=== PATIENT | female | born 1975 | race Two or more races ===

== ENCOUNTER 2018-01-26 15:29 | Inpatient (IN) | payer OTHER ==
--- NOTE | 2018-01-26 14:44 | HP ---
Screened but not Admitted - Documentation of Visit Screened but not Admitted: Yes Left Prior to Completion of Assessment: Yes Additional Information/Explanation: patient changed her mind,stated she is not ready to come in for detox,. did not want to give urine for drug screen ,. [facility]
[2018-01-26 19:33] VITALS: BMI 20.4
--- NOTE | 2018-01-26 20:20 | HP ---
COWS - Scale Resting Pulse: 2= NM 101-120 Sweatin=Flushed/Facial Moisture Restless Observation: 0= Sits Still Pupil Size: 1= Pupils >than Normal Bone or Joint Aches: 4=Acute Joint/Muscle Pain Runny Nose/ Eye Tearin= Runny Nose/Eyes GI Upset > 30mins: 2= Nausea/Diarrhea (diarrhea x 6) Tremor Observation: 2= Slight Tremor Visible Yawning Observation: 0= None Anxiety or Irritability: 0= None Goose Flesh Skin: 0=Smooth Skin COWS Score: 15 CIWA Score - CIWA Score Nausea/Vomitin Muscle Tremors: 4-Moderate,w/Arms Extend Anxiety: 4-Mod. Anxious/Guarded Agitation: 4-Moderately Restless Paroxysmal Sweats: 1-Minimal Palms Moist Orientation: 0-Oriented Tacttile Disturbances: 0-None Auditory Disturbances: 0-None Visual Disturbances: 0-None Headache: 2-Mild CIWA-Ar Total Score: 18 Admission ROS BHS - HPI Chief Complaint: Withdrawal symptoms Allergies/Adverse Reactions: Allergies Allergy/AdvReac Type Severity Reaction Status Date / Time No Known Allergies Allergy Verified 01/26/18 19:36 History of Present Illness: 42 years old female with a long history of alcohol and heroin dependence is seeking admission to detox. Patient has been in previous detox at [facility] and reports 7 years of sobriety. Patient has medical history of depression, asthma and anxiety. She reports suicide attempt in 2017 and denies suicidal ideation at this time. Patient reports that she was kicked out of [facility] 5 days ago that she is allergic to Librium. Patient is to be started on Valium pending confirmation an verification of her story regarding Methadone by the nurse. Exam Limitations: No Limitations - Ebola screening Have you traveled outside of the country in the last 21 days: No Have you had contact with anyone from an Ebola affected area: No Have you been sick,other than usual withdrawal symptoms: No Do you have a fever: No - Review of Systems Constitutional: Chills, Loss of Appetite, Malaise, Night Sweats, Changes in sleep EENT: reports: No Symptoms Reported Respiratory: reports: No Symptoms reported Cardiac: reports: No Symptoms Reported GI: reports: Diarrhea (x 3), Poor Appetite, Poor Fluid Intake, Abdominal cramping : reports: No Symptoms Reported Musculoskeletal: reports: Back Pain, Joint Pain, Muscle Pain, Muscle Weakness Integumentary: reports: Dryness Neuro: reports: Headache, Tremors Endocrine: reports: No Symptoms Reported Hematology: reports: No Symptoms Reported Psychiatric: reports: Agitated, Anxious, Depressed Other Systems: Reviewed and Negative Patient History - Patient Medical History Hx Anemia: No Hx Asthma: Yes (ON ALBUTEROL PUMP) Hx Chronic Obstructive Pulmonary Disease (COPD): No Hx Cancer: No Hx Cardiac Disorders: No Hx Congestive Heart Failure: No Hx Hypertension: No Hx Hypercholesterolemia: No Hx Pacemaker: No HX Cerebrovascular Accident: No Hx Seizures: No Hx Diabetes: No Hx Gastrointestinal Disorders: No Hx Liver Disease: No Hx Genitourinary Disorders: No Hx Sexually Transmitted Disorders: No Hx Renal Disease (ESRD): No Hx Thyroid Disease: No Hx Human Immunodeficiency Virus (HIV): No (Negative 2016) Hx Hepatitis C: No Hx Depression: Yes (Seroquel) Hx Suicide Attempt: No (2017. Denies suicidal ideation at this time) Hx Bipolar Disorder: No Hx Schizophrenia: No Other Medical History: Anxiety - Not on medication - Patient Surgical History Past Surgical History: No Hx Neurologic Surgery: No Hx Cataract Extraction: No Hx Cardiac Surgery: No Hx Lung Surgery: No Hx Breast Surgery: No Hx Breast Biopsy: No Hx Abdominal Surgery: No Hx Appendectomy: No Hx Cholecystectomy: No Hx Genitourinary Surgery: No Hx Section: No Hx Orthopedic Surgery: No Anesthesia Reaction: No - PPD History Previous Implant?: Yes Documented Results: Negative w/o proof Implanted On Prior R Admission?: Yes PPD to be Administered?: Yes - Reproductive History Patient is a Female of Child Bearing Age (11 -55 yrs old): Yes Last Menstrual Period: 01/26/18 Patient : No - Smoking Cessation Smoking history: Current every day smoker Have you smoked in the past 12 months: Yes Aproximately how many cigarettes per day: 10 Hx Chewing Tobacco Use: Yes Initiated information on smoking cessation: Yes 'Breaking Loose' booklet given: 01/26/18 - Substance & Tx. History Hx Alcohol Use: Yes Hx Substance Use: Yes Substance Use Type: Alcohol, Heroin, Marijuana Hx Substance Use Treatment: Yes - Substances Abused Alcohol Frequency: 3-6 times per week Amount used: 1 PINT OF ACE [place] Age of first use: 10 Date of Last Use: 01/26/18 Heroin Route: Inhalation Frequency: Daily Amount used: 3 BAGS DAILY Age of first use: 26 Date of Last Use: 01/26/18 CRYSTAL METH Route: Inhalation Frequency: 1-2 times per week Amount used: 1/2 BAG Age of first use: 40 Date of Last Use: 01/25/18 Family Disease History - Family Disease History Family History: Denies Admission Physical Exam [facility] - Vital Signs Vital Signs: Vital Signs - 24 hr 01/26/18 19:30 Temperature 98.6 F Pulse Rate 106 H Respiratory 18 Rate Blood Pressure 114/76 - Physical General Appearance: Yes: Moderate Distress, Tremorous, Irritable, Sweating, Anxious HEENTM: Yes: EOMI, Normocephalic, Normal Voice Respiratory: Yes: Lungs Clear, Normal Breath Sounds, No Respiratory Distress Neck: Yes: Supple Breast: Yes: Breast Exam Deferred Cardiology: Yes: Tachycardia Abdominal: Yes: Normal Bowel Sounds, Soft Genitourinary: Yes: Within Normal Limits Back: Yes: Normal Inspection Musculoskeletal: Yes: Back pain, Muscle Pain, Muscle weakness Extremities: Yes: Tremors Neurological: Yes: Fully Oriented, Alert, Motor Strength 5/5, Normal Mood/Affect Integumentary: Yes: Normal Color Lymphatic: Yes: Within Normal Limits - Diagnostic (1) Alcohol dependence with uncomplicated withdrawal Current Visit: Yes Status: Chronic (2) Depression Current Visit: Yes Status: Chronic Qualifiers: Depression Type: unspecified Qualified Code(s): F32.9 - Major depressive disorder, single episode, unspecified (3) Anxiety Current Visit: Yes Status: Chronic (4) Asthma Current Visit: Yes Status: Chronic Cleared for Admission [facility] - Detox or Rehab [facility] Level of Care: Medically Managed Detox Regimen/Protocol: Valium [facility] Breath Alcohol Content Breath Alcohol Content: 0.013 Urine Pregancy Test - Result Urine Test Results: Negative- NO Line Present Urine Drug Screen - Results Drug Screen Negative: No Urine Drug Screen Results: OPI-Opiates, AMP-Amphetamines, MET-Methamphetamine, BZO-Benzodiazepines, MTD-Methadone
[2018-01-26] MEDS ORDERED: IBUPROFEN 400 MG TABLET (FP) PO PRN (21:37)
[2018-01-26] MEDS ORDERED: MAGNESIUM CITRATE 300 ML BOTTLE PO PRN (21:37)
[2018-01-26] MEDS ORDERED: LOPERAMIDE HCL 2 MG CAPSULE PO PRN (21:37)
[2018-01-26] MEDS ORDERED: diazePAM 5 MG TABLET PO ONE (21:37)
[2018-01-26] MEDS ORDERED: MENTHOL/PHENOL 1 EACH UD MM PRN (21:37)
[2018-01-26] MEDS ORDERED: ACETAMINOPHEN 325 MG TABLET (FP) PO PRN (21:37)
[2018-01-26] MEDS ORDERED: MAG HYDROX/AL HYDROX/SIMETH 30 ML UNIT-DOSE CUP PO PRN (21:37)
[2018-01-26] MEDS ORDERED: MAGNESIUM HYDROX 2400MG/30ML ORAL SUSPENSION 30 ML CUP PO PRN (21:37)
[2018-01-26] MEDS ORDERED: P-EPHED 60MG/TRIPROLIDI 2.5MG TABLET PO PRN (21:37)
[2018-01-26] MEDS ORDERED: guaiFENesin/D-METHORPHAN HB 10 ML UNIT-DOSE CUPS PO PRN (21:37)
[2018-01-26] MEDS ORDERED: diazePAM 5 MG TABLET PO PRN (21:37)
[2018-01-26] MEDS ORDERED: ALBUTEROL SO4 8 GM HFA INHALER IH PRN (21:39)
[2018-01-26] MEDS ORDERED: MELATONIN 5 MG TABLETS PO PRN (22:00)
[2018-01-26] MEDS ORDERED: THIAMINE HCL 100 MG TABLET (FP) PO SCH (22:00)
[2018-01-26] MEDS: diazePAM 5 MG TABLET PO SCH (22:52)
[2018-01-27] MEDS: diazePAM 5 MG TABLET PO SCH ×2 (06:46→13:21)
[2018-01-27] MEDS: NICOTINE POLACRILEX 2 MG GUM BC PRN ×2 (06:52→10:52)
--- NOTE | 2018-01-27 07:35 | CONSULT ---
[facility] Psychiatric Consult - Data Date of interview: 01/27/18 Admission source: [facility] Identifying data: This is a 42 years old female, single, mother of four, unemployed, living with , with no pablic support, with psychiatric hospitalization history with a long history of alcohol and heroin dependence is seeking admission to detox. Patient with history abusing Crystal Meth and Nicotine as well. Substance Abuse History: - Smoking Cessation. Smoking history: Current every day smoker. Have you smoked in the past 12 months: Yes. Aproximately how many cigarettes per day: 10. Hx Chewing Tobacco Use: Yes. Initiated information on smoking cessation: Yes. 'Breaking Loose' booklet given: 01/26/18. - Substance & Tx. History. Hx Alcohol Use: Yes. Hx Substance Use: Yes. Substance Use Type : Alcohol, Heroin, Marijuana. Hx Substance Use Treatment: Yes. - Substances Abused. Alcohol. Frequency: 3-6 times per week. Amount used: 1 PINT OF [place]. Age of first use: 10. Date of Last Use: 01/26/18. Heroin. Route: Inhalation. Frequency: Daily. Amount used: 3 BAGS DAILY. Age of first use: 26. Date of Last Use: 01/26/18. CRYSTAL METH. Route: Inhalation. Frequency: 1-2 times per week. Amount used: 1/2 BAG. Age of first use: 40. Date of Last Use: 01/25/18 Medical History: Astma, MMTP- unclear history, Psychiatric History: Patient reports unclear past psychiatric history, unclear psychiatric hospitalization history, as per com[pluter there is a history of Suiicdal attempt, patient denies suicidal history at this time. Reports taking prior to admission: Seroquel 100mg po qhs Physical/Sexual Abuse/Trauma History: Unclear Additional Comment: Observation. Seroquel 100mg po qhs Mental Status Exam - Mental Status Exam Alert and Oriented to: Person Cognitive Function: Fair Patient Appearance: Unkempt Mood: Sad Affect: Flat Patient Behavior: Sedated Speech Pattern: Delayed Voice Loudness: Mildly Soft/Quiet Thought Process: Circumstantial Thought Disorder: Being Controlled Hallucinations: Denies Suicidal Ideation: Denies Homicidal Ideation: Denies Insight/Judgement: Fair Sleep: Difficulty falling asleep Appetite: Weight loss Muscle strength/Tone: Mild Hypotonicity Gait/Station: Shuffling Additional Comments: Observation. Seroquel 100mg po qhs Psychiatric Findings - Problem List ([place] 1, 2,3) (1) Opioid dependence Current Visit: Yes Status: Acute (2) Amphetamine abuse Current Visit: Yes Status: Acute (3) Nicotine dependence Current Visit: Yes Status: Acute (4) Drug-induced mood disorder Current Visit: Yes Status: Acute (5) Alcohol dependence with uncomplicated withdrawal Current Visit: Yes Status: Chronic (6) Asthma Current Visit: Yes Status: Chronic - Initial Treatment Plan Initial Treatment Plan: Observation. Seroquel 100mg po qhs
[2018-01-27] MEDS ORDERED: PRENATAL VITAMINS W/ FOLIC ACID TABLET (FP) PO SCH (10:00)
[2018-01-27] MEDS ORDERED: NICOTINE 14 MG/24 HOURS TOPICAL PATCH TD SCH (10:00)
[2018-01-27 10:15] LABS: HEMATOCRIT 40.5 % (32.4-45.2); MCH 31.5 pg (25.7-33.7); MCHC 34.5 g/dl (32.0-36.0); MEAN CELL VOLUME 91.3 fl (80-96); MEAN PLT VOLUME 7.9 fl (7.5-11.1); PLATELET COUNT 374 K/MM3 (134-434); RBC 4.44 M/mm3 (3.60-5.2); RDW 13.6 % (11.6-15.6); WHITE BLOOD COUNT 9.8 K/mm3 (4.0-10.0)
[2018-01-27 10:31] LABS: CALCIUM 8.5 mg/dL (8.5-10.1); CHLORIDE 107 mmol/L (98-107); POTASSIUM 4.4 mmol/L (3.5-5.1); SODIUM 141 mmol/L (136-145)
[2018-01-27 10:38] LABS: ALBUMIN 3.4 g/dl (3.4-5.0); ALK PHOS 103 U/L (45-117); ANION GAP 7 (8-16); BILIRUBIN,TOTAL 0.3 mg/dL (0.2-1.0); BLOOD UREA NITROGEN 11 mg/dL (7-18); CO2 27 mmol/L (21-32); CREATININE 0.7 mg/dL (0.55-1.02); GLUCOSE,RANDOM 97 mg/dL (74-106); SGOT/AST 29 U/L (15-37); SGPT/ALT 35 U/L (12-78); TOT PROT 6.7 g/dl (6.4-8.2)
--- NOTE | 2018-01-27 11:11 | PN ---
S CIWA - CIWA Score Nausea/Vomitin Muscle Tremors: 3 Anxiety: 3 Agitation: 3 Paroxysmal Sweats: 1-Minimal Palms Moist Orientation: 0-Oriented Tacttile Disturbances: 1-Very Mild Itch/Numbness Auditory Disturbances: 1-Very Mild Visual Disturbances: 0-None Headache: 2-Mild CIWA-Ar Total Score: 17 BHS COWS - Scale Resting Pulse: 0= [place] 80 or Below Sweatin= Chills/Flushing Restless Observation: 3= Extraneous Movement Pupil Size: 1= Pupils >than Normal Bone or Joint Aches: 2= Severe Diffuse Aches Runny Nose/ Eye Tearin= Runny Nose/Eyes GI Upset > 30mins: 2= Nausea/Diarrhea Tremor Observation of Outstretched Hands: 2= Slight Tremor Visible Yawning Observation: 1= 1-2x During Session Anxiety or Irritability: 2=Irritable/Anxious Goose Flesh Skin: 0=Smooth Skin COWS Score: 16 BHS Progress Note (SOAP) Subjective: alert,irritable,anxious,interrupted sleep,pain in the body and back,tremor, verify by nurse that patient was not on methadone maintenance since 01/15/18, she did not want to be on ,ethadone any more,will detox with methadone and valium regimen Objective: 01/27/18 11:09 Vital Signs Temperature 97.9 F 01/27/18 06:00 Pulse Rate 75 01/27/18 06:00 Respiratory Rate 18 01/27/18 06:00 Blood Pressure 145/90 01/27/18 06:00 O2 Sat by Pulse Oximetry (%) Laboratory Last Values WBC 9.8 K/mm3 (4.0-10.0) 01/27/18 06:30 RBC 4.44 M/mm3 (3.60-5.2) 01/27/18 06:30 Hgb 14.0 GM/dL (10.7-15.3) 01/27/18 06:30 Hct 40.5 % (32.4-45.2) 01/27/18 06:30 MCV 91.3 fl (80-96) 01/27/18 06:30 MCH 31.5 pg (25.7-33.7) 01/27/18 06:30 MCHC 34.5 g/dl (32.0-36.0) 01/27/18 06:30 RDW 13.6 % (11.6-15.6) 01/27/18 06:30 Plt Count 374 K/MM3 (134-434) 01/27/18 06:30 MPV 7.9 fl (7.5-11.1) 01/27/18 06:30 Sodium 141 mmol/L (136-145) 01/27/18 06:30 Potassium 4.4 mmol/L (3.5-5.1) 01/27/18 06:30 Chloride 107 mmol/L (98-107) 01/27/18 06:30 Carbon Dioxide 27 mmol/L (21-32) 01/27/18 06:30 Anion Gap 7 (8-16) L 01/27/18 06:30 BUN 11 mg/dL (7-18) 01/27/18 06:30 Creatinine 0.7 mg/dL (0.55-1.02) 01/27/18 06:30 Creat Clearance w eGFR > 60 (>60) 01/27/18 06:30 Random Glucose 97 mg/dL (74-106) 01/27/18 06:30 Calcium 8.5 mg/dL (8.5-10.1) 01/27/18 06:30 Total Bilirubin 0.3 mg/dL (0.2-1.0) 01/27/18 06:30 AST 29 U/L (15-37) 01/27/18 06:30 ALT 35 U/L (12-78) 01/27/18 06:30 Alkaline Phosphatase 103 U/L (45-117) 01/27/18 06:30 Total Protein 6.7 g/dl (6.4-8.2) 01/27/18 06:30 Albumin 3.4 g/dl (3.4-5.0) 01/27/18 06:30 RPR Titer Nonreactive (NONREACTIVE) 01/27/18 06:30 HIV 1&2 Antibody Screen Negative 01/27/18 06:30 HIV P24 Antigen Negative 01/27/18 06:30 Assessment: 01/27/18 11:10 withdrawal symptom Plan: continue detox
[2018-01-27] MEDS ORDERED: METHADONE HCL 10 MG TABLET (FOR DETOX USE ONLY) PO ONE ×2 (11:40→23:00)
[2018-01-27] MEDS ORDERED: CYCLOBENZAPRINE HCL 10 MG TABLET (FP) PO PRN (12:27)
[2018-01-27] MEDS ORDERED: cloNIDine HCL 0.1 MG TABLET PO SCH (12:30)
--- NOTE | 2018-01-27 14:00 | PN ---
John Progress Note Note: patient did not want to complete treatment,declined to give reason,all attempts to convince patient to stay with no avail.risk of withdrawal and relapse explained,signed release ama,advise to go to emergency room if emergency medical problem
--- NOTE | 2018-01-27 14:02 | DS ---
[facility] Detox Discharge Summary Admission Date: 01/26/18 Discharge Date: 01/27/18 - History Present History: Alcohol Dependence, Opioid Dependence Additional Comments: patient signed release ama Pertinent Past History: asthma anxiety and depression - Physical Exam Results Vital Signs: Vital Signs Temperature 97.7 F 01/27/18 11:10 Pulse Rate 68 01/27/18 11:10 Respiratory Rate 18 01/27/18 11:10 Blood Pressure 145/89 01/27/18 11:10 O2 Sat by Pulse Oximetry (%) Pertinent Admission Physical Exam Findings: withdrawal signs and symptom Laboratory Last Values WBC 9.8 K/mm3 (4.0-10.0) 01/27/18 06:30 RBC 4.44 M/mm3 (3.60-5.2) 01/27/18 06:30 Hgb 14.0 GM/dL (10.7-15.3) 01/27/18 06:30 Hct 40.5 % (32.4-45.2) 01/27/18 06:30 MCV 91.3 fl (80-96) 01/27/18 06:30 MCH 31.5 pg (25.7-33.7) 01/27/18 06:30 MCHC 34.5 g/dl (32.0-36.0) 01/27/18 06:30 RDW 13.6 % (11.6-15.6) 01/27/18 06:30 Plt Count 374 K/MM3 (134-434) 01/27/18 06:30 MPV 7.9 fl (7.5-11.1) 01/27/18 06:30 Sodium 141 mmol/L (136-145) 01/27/18 06:30 Potassium 4.4 mmol/L (3.5-5.1) 01/27/18 06:30 Chloride 107 mmol/L (98-107) 01/27/18 06:30 Carbon Dioxide 27 mmol/L (21-32) 01/27/18 06:30 Anion Gap 7 (8-16) L 01/27/18 06:30 BUN 11 mg/dL (7-18) 01/27/18 06:30 Creatinine 0.7 mg/dL (0.55-1.02) 01/27/18 06:30 Creat Clearance w eGFR > 60 (>60) 01/27/18 06:30 Random Glucose 97 mg/dL (74-106) 01/27/18 06:30 Calcium 8.5 mg/dL (8.5-10.1) 01/27/18 06:30 Total Bilirubin 0.3 mg/dL (0.2-1.0) 01/27/18 06:30 AST 29 U/L (15-37) 01/27/18 06:30 ALT 35 U/L (12-78) 01/27/18 06:30 Alkaline Phosphatase 103 U/L (45-117) 01/27/18 06:30 Total Protein 6.7 g/dl (6.4-8.2) 01/27/18 06:30 Albumin 3.4 g/dl (3.4-5.0) 01/27/18 06:30 RPR Titer Nonreactive (NONREACTIVE) 01/27/18 06:30 HIV 1&2 Antibody Screen Negative 01/27/18 06:30 HIV P24 Antigen Negative 01/27/18 06:30 Vital Signs Temperature 97.7 F 01/27/18 11:10 Pulse Rate 68 01/27/18 11:10 Respiratory Rate 18 01/27/18 11:10 Blood Pressure 145/89 01/27/18 11:10 O2 Sat by Pulse Oximetry (%) - Medication Discharge Medications: Ambulatory Orders Albuterol Sulfate Inhaler - [Ventolin Hfa Inhaler -] 2 inh PO Q4H PRN 01/26/18 Quetiapine Fumarate [Seroquel -] 100 mg PO HS #30 tablet 01/27/18 - Diagnosis (1) Opioid dependence with withdrawal Current Visit: Yes Status: Acute (2) Alcohol dependence with uncomplicated withdrawal Current Visit: Yes Status: Chronic (3) Anxiety Current Visit: Yes Status: Chronic (4) Asthma Current Visit: Yes Status: Chronic (5) Depression Current Visit: Yes Status: Chronic Qualifiers: Depression Type: unspecified Qualified Code(s): F32.9 - Major depressive disorder, single episode, unspecified - AMA Did Patient Leave Against Medical Advice: Yes
[2018-01-27 15:00] VITALS: BP 144/93; PULSE 104; TEMP 98.4
[2018-01-27] MEDS ORDERED: QUEtiapine FUMARATE 100 MG TABLET (FP) PO SCH (22:00)
[2018-01-28] MEDS ORDERED: diazePAM 5 MG TABLET PO SCH (10:00)
[2018-01-28] MEDS ORDERED: METHADONE HCL 10 MG TABLET (FOR DETOX USE ONLY) PO ONE (10:00)
[2018-01-28 14:54] LABS: URINE APPEARANCE CLEAR; URINE BILIRUBIN NEGATIVE (<2.0 mg/dL); URINE COLOR STRAW; URINE GLUCOSE (UA) NEGATIVE (NEGATIVE); URINE KETONE NEGATIVE (NEGATIVE); URINE LEUK ESTERASE NEGATIVE (NEGATIVE); URINE NITRITE NEGATIVE (NEGATIVE); URINE PROTEIN NEGATIVE (NEGATIVE); URINE UROBILINOGEN NEGATIVE mg/dL (0.2-1.0)
[2018-01-28 15:18] LABS: EPI CELLS RARE /HPF (FEW)
[2018-01-29] MEDS ORDERED: METHADONE HCL 5 MG TABLET (FOR DETOX USE ONLY) PO ONE (10:00)
[2018-01-30] MEDS ORDERED: METHADONE HCL 5 MG TABLET (FOR DETOX USE ONLY) PO ONE (10:00)
[2018-01-30] MEDS ORDERED: diazePAM 5 MG TABLET PO SCH (10:00)
[2018-01-31] MEDS ORDERED: METHADONE HCL 10 MG TABLET (FOR DETOX USE ONLY) PO ONE (10:00)
[2018-02-01] MEDS ORDERED: METHADONE HCL 5 MG TABLET (FOR DETOX USE ONLY) PO ONE (06:00)
== END 2018-01-27 14:07 | disposition left against medical advice (07) | DRG 770 ==
LOC: YASAS 15:29 → Y6N 21:15
PROVIDERS: ADMIT Surgery; ATTEND Surgery
PROC: HZ2ZZZZ Detoxification Services for Substance Abuse Treatment (ICD-10-PCS; principal; 2018-01-26)
DX: F10.230 Alcohol dependence with withdrawal, uncomplicated (principal); F11.20 Opioid dependence, uncomplicated; F15.10 Other stimulant abuse, uncomplicated; F17.210 Nicotine dependence, cigarettes, uncomplicated; J45.998 Other asthma; R00.1 Bradycardia, unspecified
CPT/HCPCS: 36415; 80053; 81003; 81015; 85027; 86593; 87389; J0735

== ENCOUNTER 2018-04-09 16:58 | Inpatient (IN) | payer OTHER ==
[2018-04-09 17:27] VITALS: BMI 21.3
--- NOTE | 2018-04-09 19:28 | HP ---
"COWS - Scale Resting Pulse: 0= [place] 80 or Below Sweatin=Flushed/Facial Moisture Restless Observation: 1= Difficult to Sit Still Pupil Size: 2= Moderately Dilated (Pupils = 4 mm) Bone or Joint Aches: 1= Mild Discomfort Runny Nose/ Eye Tearin= Runny Nose/Eyes GI Upset > 30mins: 0= None Tremor Observation: 2= Slight Tremor Visible Yawning Observation: 0= None Anxiety or Irritability: 1=Feels Anxious/Irritable Goose Flesh Skin: 0=Smooth Skin COWS Score: 11 CIWA Score - CIWA Score Nausea/Vomitin-No Nausea/No Vomiting Muscle Tremors: 4-Moderate,w/Arms Extend Anxiety: 3 Agitation: 3 Paroxysmal Sweats: 3 Orientation: 0-Oriented Tacttile Disturbances: 0-None Auditory Disturbances: 0-None Visual Disturbances: 0-None Headache: 2-Mild CIWA-Ar Total Score: 15 Admission ROS S - [facility] Chief Complaint: Here for opiate withdrawal. Allergies/Adverse Reactions: Allergies Allergy/AdvReac Type Severity Reaction Status Date / Time No Known Allergies Allergy Verified 04/09/18 18:44 History of Present Illness: Started using opiates at about age 18. Was in [facility] x 5 years - left in January. Restarted using heroin 2 months ago. Longest length of sobriety is 7 years w/o methadone. No opiate overdose. Has had overdose r/t alcohol. Denies hx seizures or blackouts. Search Terms: Leslie Mock, 1975 Search Date: 04/09/2018 07:27:17 PM The Drug Utilization Report below displays all of the controlled substance prescriptions, if any, that your patient has filled in the last twelve months. The information displayed on this report is compiled from pharmacy submissions to the Department, and accurately reflects the information as submitted by the pharmacies. This report was requested by: Sandra Ko | Reference #: [id number] Patient Name: Leslie Mock Date: 1975 Address: [facility] [place] [address] [address] Sex: Female Rx Written Rx Dispensed Drug Quantity Days Supply Prescriber Name 08/15/2017 09/09/2017 oxycodone hcl 30 mg tablet 100 30 Wally Pierre A, M D 07/03/2017 07/06/2017 oxycodone hcl 30 mg tablet 100 30 Wally Pierre A, M D 05/11/2017 05/11/2017 oxycodone hcl 30 mg tablet 100 30 Wally Pierre A, M D Exam Limitations: No Limitations - Ebola screening Have you traveled outside of the country in the last 21 days: No (N) Have you had contact with anyone from an Ebola affected area: No Have you been sick,other than usual withdrawal symptoms: No Do you have a fever: No - Review of Systems Constitutional: Chills, Diaphoresis, Changes in sleep (Difficulty falling asleep ) EENT: reports: Nose Congestion Respiratory: reports: Cough (Occ cough x 2 weeks. States greenish mucous.) Cardiac: reports: No Symptoms Reported GI: reports: No Symptoms Reported : reports: No Symptoms Reported Musculoskeletal: reports: Other (Generalized bone pain) Integumentary: reports: No Symptoms Reported Neuro: reports: Headache (r/t withdrawal), Tremors (r/t withdrawal) Endocrine: reports: No Symptoms Reported Hematology: reports: No Symptoms Reported, Other (Varicose veins.) Psychiatric: reports: Judgement Intact, Orientated x3, Agitated, Anxious Patient History - Patient Medical History Hx Anemia: No Hx Asthma: Yes (ON ALBUTEROL PUMP) Hx Chronic Obstructive Pulmonary Disease (COPD): No Hx Cancer: No Hx Cardiac Disorders: No Hx Congestive Heart Failure: No Hx Hypertension: No Hx Hypercholesterolemia: No Hx Pacemaker: No HX Cerebrovascular Accident: No Hx Seizures: No Hx Diabetes: No Hx Gastrointestinal Disorders: No Hx Liver Disease: No Hx Genitourinary Disorders: No Hx Sexually Transmitted Disorders: No Hx Renal Disease (ESRD): No Hx Thyroid Disease: No Hx Human Immunodeficiency Virus (HIV): No (Negative 2016) Hx Hepatitis C: No Hx Depression: Yes (Seroquel) Hx Suicide Attempt: No (2017. Denies suicidal ideation at this time) Hx Bipolar Disorder: No Hx Schizophrenia: No - Patient Surgical History Past Surgical History: No Hx Neurologic Surgery: No Hx Cataract Extraction: No Hx Cardiac Surgery: No Hx Lung Surgery: No Hx Breast Surgery: No Hx Breast Biopsy: No Hx Abdominal Surgery: No Hx Appendectomy: No Hx Cholecystectomy: No Hx Genitourinary Surgery: No Hx Section: No Hx Orthopedic Surgery: No Anesthesia Reaction: No - PPD History Previous Implant?: Yes Documented Results: Negative w/proof Implanted On Prior R Admission?: Yes Date: 01/28/18 PPD to be Administered?: No - Reproductive History Patient is a Female of Child Bearing Age (11 -55 yrs old): Yes Last Menstrual Period: 01/26/18 (Not sexually acttive) Patient : No - Smoking Cessation Smoking history: Current every day smoker Have you smoked in the past 12 months: Yes Aproximately how many cigarettes per day: 10 Hx Chewing Tobacco Use: Yes Initiated information on smoking cessation: No 'Breaking Loose' booklet given: 04/09/18 - Substance & Tx. History Hx Alcohol Use: Yes Hx Substance Use: Yes Substance Use Type: Alcohol, Heroin Hx Substance Use Treatment: Yes (detox, rehab, past hx MMTP) - Substances Abused Alcohol Route: Oral Frequency: Daily Amount used: liquor- 1 pint, beer- beer- 1 six pack Age of first use: 41 Date of Last Use: 04/09/18 Heroin Route: Inhalation Frequency: Daily Amount used: 6 bags Age of first use: 21 (Recent d/c [facility] & relapsed) Date of Last Use: 04/09/18 Admission Physical Exam BHS - Vital Signs Vital Signs: Vital Signs - 24 hr 04/09/18 17:26 Temperature 98.0 F Pulse Rate 79 Respiratory 18 Rate Blood Pressure 140/90 - Physical General Appearance: Yes: Mild Distress, Tremorous, Irritable, Sweating, Anxious HEENTM: Yes: EOMI, Hearing grossly Normal, Normal ENT Inspection, Normocephalic , Normal Voice, ELAINE (Pupils = 4 mm), Rhinorrhea Respiratory: Yes: Lungs Clear, No Respiratory Distress, Wheezing (Slight expiratory wheeze mid and lower lobes), Other (Spontaneous cough - productive clear phlegm) Neck: Yes: No masses,lesions,Nodules, Supple Breast: Yes: Breast Exam Deferred Cardiology: Yes: Regular Rhythm, Regular Rate, S1, S2 Abdominal: Yes: Non Tender, Flat, Soft, Increased Bowel Sounds Genitourinary: Yes: Within Normal Limits Back: Yes: Normal Inspection Musculoskeletal: Yes: full range of Motion, Gait Steady Extremities: Yes: Normal Capillary Refill, Normal Inspection, Normal Range of Motion, Non-Tender, Tremors (Mild tremors of hands w/ extension) Neurological: Yes: sample hand II-XII NML intact, Fully Oriented, Alert, Motor Strength 5/5, Normal Mood/Affect, Normal Response Integumentary: Yes: Normal Color, Dry, Warm Lymphatic: Yes: Within Normal Limits - Diagnostic (1) Opioid dependence with withdrawal Current Visit: Yes Status: Acute (2) Alcohol dependence with uncomplicated withdrawal Current Visit: Yes Status: Acute (3) Asthma Current Visit: Yes Status: Acute Qualifiers: Asthma severity: mild Asthma persistence: intermittent Asthma complication type: with acute exacerbation Qualified Code(s): J45.21 - Mild intermittent asthma with (acute) exacerbation Comment: Cough and wheeze Cleared for Admission S - Detox or Rehab [facility] Level of Care: Medically Managed Detox Regimen/Protocol: Methadone/Valium S Breath Alcohol Content Breath Alcohol Content: 0 Urine Pregancy Test - Result Urine Test Results: Negative- NO Line Present Urine Drug Screen - Results Drug Screen Negative: No Urine Drug Screen Results: THC-Marijuana, OPI-Opiates, MTD-Methadone"
[2018-04-09] MEDS ORDERED: MAG HYDROX/AL HYDROX/SIMETH 30 ML UNIT-DOSE CUP PO PRN (19:48)
[2018-04-09] MEDS ORDERED: METHADONE HCL 10 MG TABLET (FOR DETOX USE ONLY) PO ONE ×2 (19:48→23:00)
[2018-04-09] MEDS ORDERED: MENTHOL/PHENOL 1 EACH UD MM PRN (19:48)
[2018-04-09] MEDS ORDERED: diazePAM 5 MG TABLET PO ONE (19:48)
[2018-04-09] MEDS ORDERED: MAGNESIUM HYDROX 2400MG/30ML ORAL SUSPENSION 30 ML CUP PO PRN (19:48)
[2018-04-09] MEDS ORDERED: ACETAMINOPHEN 325 MG TABLET (FP) PO PRN (19:48)
[2018-04-09] MEDS ORDERED: MAGNESIUM CITRATE 300 ML BOTTLE PO PRN (19:48)
[2018-04-09] MEDS ORDERED: LOPERAMIDE HCL 2 MG CAPSULE PO PRN (19:48)
[2018-04-09] MEDS ORDERED: ALBUTEROL SO4 8 GM HFA INHALER IH PRN (19:50)
[2018-04-09] MEDS: guaiFENesin 200 MG/10 ML 10 ML UNIT-DOSE CUPS PO SCH (21:55)
[2018-04-09] MEDS ORDERED: MELATONIN 5 MG TABLETS PO PRN (22:00)
[2018-04-09] MEDS: diazePAM 5 MG TABLET PO SCH (22:08)
[2018-04-09] MEDS: ALBUTEROL SO4 2.5/IPRATROPIUM 0.5 INH SOL 3 ML VIAL.NEB. NEB SCH (22:09)
[2018-04-09] MEDS: THIAMINE HCL 100 MG TABLET (FP) PO SCH (22:43)
[2018-04-10] MEDS: guaiFENesin 200 MG/10 ML 10 ML UNIT-DOSE CUPS PO SCH (05:00)
[2018-04-10] MEDS: diazePAM 5 MG TABLET PO SCH ×3 (06:33→21:40)
--- NOTE | 2018-04-10 07:33 | CONSULT ---
[facility] Psychiatric Consult - Data Date of interview: 04/10/18 Admission source: [facility] Identifying data: This is a 43 years old female , single, mother of four, unsmployed, on SSD support, with psychiatric hospitalization history, reports Heroin, Cocoaine, Nicotine dpenedence, reports Alcohol withdrawaol synptoms and seeking for detox. Patient denies suicidal, homicidal history. Started using opiates at about age 18. Substance Abuse History: Smoking history: Current every day smoker. Have you smoked in the past 12 months: Yes. Aproximately how many cigarettes per day: 10. Hx Chewing Tobacco Use: Yes. Initiated information on smoking cessation: No. 'Breaking Loose' booklet given: 04/09/18. - Substance & Tx. History. Hx Alcohol Use: Yes. Hx Substance Use: Yes. Substance Use Type: Alcohol, Heroin. Hx Substance Use Treatment: Yes (detox, rehab, past hx [facility]). - Substances Abused. Alcohol. Route: Oral. Frequency: Daily. Amount used: liquor- 1 pint, beer- beer- 1 six pack. Age of first use: 41. Date of Last Use: . Heroin. Route: Inhalation. Frequency: Daily. Amount used: 6 bags. Age of first use: 21 (Recent d/c [facility] & relapsed). Date of Last Use: Medical History: Asthma Psychiatric History: Patient reports history of anxiety and depression, reports unclear psychoatrric admission on 2018 for safety, reports Heroin, Alcohol, Nicotine dependence, Amphetamins abuse, denies suicidal, homicidal ideation, reports taking prior to admission: Seroquel 100mg po qhs. Seroquel 25mg poqd Physical/Sexual Abuse/Trauma History: Denies Additional Comment: Seroquel 100mg po qhs Mental Status Exam - Mental Status Exam Alert and Oriented to: Person Cognitive Function: Fair Patient Appearance: Unkempt Mood: Anxious Affect: Labile Patient Behavior: Talkative, Cooperative Speech Pattern: Appropriate Voice Loudness: Moderately Loud Thought Process: Goal Oriented Thought Disorder: Being Controlled Hallucinations: Denies Suicidal Ideation: Denies Homicidal Ideation: Denies Insight/Judgement: Fair Sleep: Difficulty falling asleep Appetite: Fair Muscle strength/Tone: Normal Gait/Station: Normal Additional Comments: Seroquel 100mg po qhs. Seroquel 25mg poqd Psychiatric Findings - Problem List ([place] 1, 2,3) (1) Alcohol dependence with uncomplicated withdrawal Current Visit: Yes Status: Acute (2) Asthma Current Visit: Yes Status: Acute Qualifiers: Asthma severity: mild Asthma persistence: intermittent Asthma complication type: with acute exacerbation Qualified Code(s): J45.21 - Mild intermittent asthma with (acute) exacerbation Comment: Cough and wheeze (3) Opioid dependence with withdrawal Current Visit: Yes Status: Acute (4) Drug-induced mood disorder Current Visit: No Status: Acute (5) Nicotine dependence Current Visit: No Status: Acute (6) Opioid dependence Current Visit: No Status: Acute - Initial Treatment Plan Initial Treatment Plan: Seroquel 100mg po qhs. Seroquel 25mg poqd
[2018-04-10] MEDS: ALBUTEROL SO4 2.5/IPRATROPIUM 0.5 INH SOL 3 ML VIAL.NEB. NEB SCH ×2 (08:30→14:55)
[2018-04-10] MEDS ORDERED: METHADONE HCL 10 MG TABLET (FOR DETOX USE ONLY) PO SCH (10:00)
[2018-04-10] MEDS: PRENATAL VITAMINS W/ FOLIC ACID TABLET (FP) PO SCH (10:50)
[2018-04-10] MEDS: NICOTINE 21 MG/24 HOURS TOPICAL PATCH TD SCH (10:51)
[2018-04-10] MEDS: diazePAM 5 MG TABLET PO PRN (11:31)
--- NOTE | 2018-04-10 11:39 | PN ---
[facility] CIWA - CIWA Score Nausea/Vomitin-Mild Nausea/No Vomiting Muscle Tremors: 3 Anxiety: 3 Agitation: 2 Paroxysmal Sweats: 1-Minimal Palms Moist Orientation: 1-Uncertain about Date Tacttile Disturbances: 0-None Auditory Disturbances: 0-None Visual Disturbances: 0-None Headache: 1-Very Mild CIWA-Ar Total Score: 12 [facility] COWS - Scale Resting Pulse: 1= NV 81-100 Sweatin= Chills/Flushing Restless Observation: 1= Difficult to Sit Still Pupil Size: 0= Normal to Room Light Bone or Joint Aches: 2= Severe Diffuse Aches Runny Nose/ Eye Tearin= Nasal Congestion GI Upset > 30mins: 1= Stomach Cramp Tremor Observation of Outstretched Hands: 2= Slight Tremor Visible Yawning Observation: 1= 1-2x During Session Anxiety or Irritability: 1=Feels Anxious/Irritable Goose Flesh Skin: 0=Smooth Skin COWS Score: 11 [facility] Progress Note (SOAP) Subjective: body aches joints pain sweat tremor trouble sleep at night Objective: 04/10/18 11:39 Vital Signs Temperature 98.1 F 04/10/18 10:09 Pulse Rate 81 04/10/18 10:09 Respiratory Rate 18 04/10/18 10:09 Blood Pressure 122/68 04/10/18 10:09 O2 Sat by Pulse Oximetry (%) lab not available Assessment: 04/10/18 11:40 withdrawal sx Plan: continue detox
[2018-04-10] MEDS ORDERED: BACLOFEN 10 MG TABLET (FP) PO ONE (12:15)
[2018-04-10] MEDS: NICOTINE POLACRILEX 4 MG GUM BUC PRN ×2 (14:17→21:41)
[2018-04-10] MEDS: QUEtiapine FUMARATE 25 MG TABLET (FP) PO SCH (16:00)
[2018-04-10] MEDS: THIAMINE HCL 100 MG TABLET (FP) PO SCH (21:40)
[2018-04-10] MEDS: IBUPROFEN 400 MG TABLET (FP) PO PRN (21:40)
[2018-04-10] MEDS: QUEtiapine FUMARATE 100 MG TABLET (FP) PO SCH (21:40)
[2018-04-11] MEDS ORDERED: hydrOXYzine PAMOATE 25 MG CAPSULE (FP) PO ONE (00:02)
[2018-04-11] MEDS: NICOTINE POLACRILEX 4 MG GUM BUC PRN ×2 (00:14→21:07)
[2018-04-11] MEDS: diazePAM 5 MG TABLET PO PRN ×3 (06:45→19:39)
[2018-04-11] MEDS ORDERED: METHADONE HCL 5 MG TABLET (FOR DETOX USE ONLY) PO SCH (10:00)
[2018-04-11] MEDS: QUEtiapine FUMARATE 25 MG TABLET (FP) PO SCH (10:24)
[2018-04-11] MEDS: PRENATAL VITAMINS W/ FOLIC ACID TABLET (FP) PO SCH (10:24)
[2018-04-11] MEDS: NICOTINE 21 MG/24 HOURS TOPICAL PATCH TD SCH (10:24)
[2018-04-11] MEDS: diazePAM 5 MG TABLET PO SCH ×2 (10:24→23:42)
--- NOTE | 2018-04-11 13:19 | PN ---
[facility] COWS - Scale Resting Pulse: 2= SD 101-120 Sweatin= Beads of Sweat on Face Restless Observation: 0= Sits Still Pupil Size: 0= Normal to Room Light Bone or Joint Aches: 0= None Runny Nose/ Eye Tearin= None GI Upset > 30mins: 0= None Tremor Observation of Outstretched Hands: 0= None Yawning Observation: 0= None Anxiety or Irritability: 2=Irritable/Anxious Goose Flesh Skin: 0=Smooth Skin COWS Score: 7 [facility] Progress Note (SOAP) Subjective: PATIENT C/O SWEATING AND ANXIETY. Objective: Vital Signs Temperature 98.1 F 04/11/18 09:10 Pulse Rate 96 H 04/11/18 09:10 Respiratory Rate 18 04/11/18 09:10 Blood Pressure 127/72 04/11/18 09:10 O2 Sat by Pulse Oximetry (%) PE: SKIN WARM, SWEATY ALERT AND ORIENTED X 3 AMB AD CATHY EXT FULL ROM ANXIOUS Assessment: 04/11/18 13:18 WITHDRAWAL SX Plan: CONTINUE DETOX ORDERED ENCOURAGE ORAL FLUIDS LABS REORDERED FOR THE AM CONTINUE TO MONITOR CLINICALLY
[2018-04-11] MEDS: IBUPROFEN 400 MG TABLET (FP) PO PRN (19:39)
[2018-04-11] MEDS ORDERED: CYCLOBENZAPRINE HCL 5 MG TABLET PO PRN (19:52)
[2018-04-11] MEDS: THIAMINE HCL 100 MG TABLET (FP) PO SCH (21:01)
[2018-04-11] MEDS: QUEtiapine FUMARATE 100 MG TABLET (FP) PO SCH ×2 (21:01→23:42)
[2018-04-12] MEDS: diazePAM 5 MG TABLET PO PRN ×2 (02:02→07:27)
[2018-04-12] MEDS: NICOTINE POLACRILEX 4 MG GUM BUC PRN (02:03)
[2018-04-12 09:34] VITALS: BP 114/73; PULSE 96; TEMP 98.9
--- NOTE | 2018-04-12 10:19 | PN ---
[facility] Progress Note Note: PATIENT EVALUATED THIS MORNING WHILE IN BED AND STATES SHE FELT OK. C/O MILD SWEATING. PATIENT LATER CAME OUT OF ROOM APPROXIMATELY 1/2 LATER AND REQUESTED TO SIGN OUT AMA. PATIENT STATES "MY GRANDMOTHER IS SICK AND ALL ALONE. I HAVE TO LEAVE NOW!". PATIENT ENCOURAGED TO COMPLETED DETOX BUT REFUSED. PATIENT EXPLAINED RISK FACTORS OF RELAPSE AND WITH SIGNING OUT WITH NO POSITIVE EFFECT. PATIENT ENCOURAGED TO ATTEND GROUP MEETINGS TO PREVENT RELAPSE AND SEEK MEDICAL ATTENTION IF WITHDRAWAL SYMPTOMS OCCUR.
--- NOTE | 2018-04-12 10:19 | DS ---
[facility] Detox Discharge Summary Admission Date: 04/09/18 Discharge Date: 04/12/18 - History Present History: Alcohol Dependence, Opioid Dependence - Physical Exam Results Vital Signs: Vital Signs Temperature 98.9 F 04/12/18 09:34 Pulse Rate 96 H 04/12/18 09:34 Respiratory Rate 18 04/12/18 09:34 Blood Pressure 114/73 04/12/18 09:34 O2 Sat by Pulse Oximetry (%) - Medication Discharge Medications: Ambulatory Orders Albuterol Sulfate Inhaler - [Ventolin HFA Inhaler -] 2 inh PO Q4H PRN #1 inhaler 01/27/18 Quetiapine Fumarate [Seroquel -] 25 mg PO DAILY #30 tablet 04/10/18 Quetiapine Fumarate [Seroquel -] 100 mg PO HS #30 tablet 04/10/18 Quetiapine Fumarate [Seroquel] 100 mg PO HS #30 tablet 04/10/18 - Diagnosis (1) Alcohol dependence with uncomplicated withdrawal Current Visit: Yes Status: Acute (2) Opioid dependence with withdrawal Current Visit: Yes Status: Acute - AMA Did Patient Leave Against Medical Advice: Yes
[2018-04-12 10:30] LABS: BASO % 0.3 % (0-2.0); EOS % 2.8 % (0-4.5); HEMOGLOBIN 14.7 GM/dL (10.7-15.3); LYMPH % 29.7 % (8-40); MCHC 34.9 g/dl (32.0-36.0); MEAN CELL VOLUME 94.3 fl (80-96); MEAN PLT VOLUME 8.6 fl (7.5-11.1); MONO % 7.1 % (3.8-10.2); NEUT % 60.1 % (42.8-82.8); PLATELET COUNT 309 K/MM3 (134-434); RBC 4.45 M/mm3 (3.60-5.2)
[2018-04-12 11:09] LABS: ALBUMIN 3.5 g/dl (3.4-5.0); ALK PHOS 132 U/L (45-117); ANION GAP 12 MMOL/L (8-16); BILIRUBIN,TOTAL 0.3 mg/dL (0.2-1); BLOOD UREA NITROGEN 8 mg/dL (7-18); CALCIUM 8.6 mg/dL (8.5-10.1); CHLORIDE 106 mmol/L (98-107); CO2 21 mmol/L (21-32); CREATININE 0.6 mg/dL (0.55-1.3); GLUCOSE,RANDOM 118 mg/dL (74-106); POTASSIUM 4.1 mmol/L (3.5-5.1); SGOT/AST 1199 U/L (15-37); SGPT/ALT 1150 U/L (13-61); SODIUM 139 mmol/L (136-145); TOT PROT 6.8 g/dl (6.4-8.2)
[2018-04-13] MEDS ORDERED: METHADONE HCL 10 MG TABLET (FOR DETOX USE ONLY) PO SCH (10:00)
[2018-04-13] MEDS ORDERED: diazePAM 5 MG TABLET PO SCH (10:00)
[2018-04-14] MEDS ORDERED: METHADONE HCL 5 MG TABLET (FOR DETOX USE ONLY) PO SCH (06:00)
== END 2018-04-12 10:05 | disposition left against medical advice (07) | DRG 770 ==
LOC: YASAS 16:58 → Y6N 19:25
PROC: HZ2ZZZZ Detoxification Services for Substance Abuse Treatment (ICD-10-PCS; principal; 2018-04-09)
DX: F11.20 Opioid dependence, uncomplicated (principal); F10.230 Alcohol dependence with withdrawal, uncomplicated; F19.24 Other psychoactive substance dependence with psychoactive substance-induced mood disorder; F32.9 Major depressive disorder, single episode, unspecified; J45.21 Mild intermittent asthma with (acute) exacerbation
CPT/HCPCS: 36415; 80053; 85025; 86593; 94640; J0475